=== PATIENT | male | born 2000 | race Caucasian/White ===

== ENCOUNTER 2024-11-14 10:58 | Outpatient (CLI) | payer OTHER, SELFPAY | END 2024-11-14 10:59 | disposition home or self-care (01) | LOC: NFLDREF 10:59 | PROVIDERS: PCP Family Medicine; Visit Provider Family Medicine | DX: Z11.4 Encounter for screening for human immunodeficiency virus [HIV] (principal) | CPT/HCPCS: 86703 ==